=== PATIENT | male | born 1950 | race Caucasian/White ===

== ENCOUNTER 2018-08-27 21:34 | Emergency (ER) | payer OTHER ==
[~2018-08-27] VITALS: Ht 170.2 cm; Wt 70.3 kg
[~2018-08-27 21:34] MED LIST: AMIODARONE HCL100 MG PO; CLONAZEPAM0.5 MG PO; COREG CR10 MG PO; COUMADIN2.5 MG PO; Coreg 3.125MG TABLET PO; DIGOXIN125 MCG PO; ISORDIL10 MG PO; LAMICTAL XR300 MG PO; LASIX20 MG PO; LEVAQUIN500 MG PO; LIPITOR40 MG PO; LISINOPRIL2.5 MG PO; NEURONTIN300 MG PO; PRAVASTATIN SOD40 MG PO; Tussi-Organidin Dm-S PO; XARELTO10 MG PO; XARELTO20 MG PO; ZITHROMAX500 MG PO
== END 2018-08-28 10:13 | disposition home or self-care (01) ==
LOC: ER 21:34
DX: R07.89 Other chest pain (principal)

== ENCOUNTER 2019-08-19 12:18 | Emergency (ER) | payer OTHER ==
[~2019-08-19] VITALS: Ht 175.3 cm; Wt 72.6 kg
[2019-08-19] MEDS ORDERED: TUSNEL LIQUID178 ML PO (14:05)
== END 2019-08-19 14:14 | disposition home or self-care (01) ==
LOC: ER 12:18
DX: J00 Acute nasopharyngitis [common cold] (principal)

== ENCOUNTER 2019-10-17 12:13 | Emergency (ER) | payer OTHER ==
[~2019-10-17] VITALS: Ht 170.2 cm; Wt 74.8 kg
[~2019-10-17 12:13] MED LIST changes: +TUSNEL LIQUID178 ML PO
== END 2019-10-17 18:32 | disposition home or self-care (01) ==
LOC: ER 12:13
DX: J90 Pleural effusion, not elsewhere classified (principal); R06.02 Shortness of breath

== ENCOUNTER 2019-10-23 12:04 | Inpatient (IN) | payer OTHER ==
[~2019-10-23] VITALS: Ht 167.6 cm; Wt 88.5 kg
[2019-11-03] MEDS ORDERED: LAMICTAL XR300 MG PO ×2 (09:06→09:08)
[2019-11-03] MEDS ORDERED: LASIX20 MG PO (09:06)
[2019-11-03] MEDS ORDERED: AMIODARONE HCL100 MG PO (09:06)
[2019-11-03] MEDS ORDERED: LIPITOR40 MG PO (09:06)
[2019-11-03] MEDS ORDERED: XARELTO10 MG PO (09:06)
== END 2019-11-04 20:03 | disposition home or self-care (01) | DRG 291 ==
LOC: ER 12:04 → ICU-2 19:06 → ICU 19:06 → MEDJ 10-28 15:14
PROVIDERS: ADMIT Internal Medicine
PROC: B246ZZZ Ultrasonography of Right and Left Heart (ICD-10-PCS; principal; 2019-10-23)
PROC: BW28ZZZ Computerized Tomography (CT Scan) of Head (ICD-10-PCS; 2019-10-23)
PROC: B345ZZZ Ultrasonography of Bilateral Common Carotid Arteries (ICD-10-PCS; 2019-10-23)
PROC: 4A033R1 Measurement of Arterial Saturation, Peripheral, Percutaneous Approach (ICD-10-PCS; 2019-10-23)
PROC: 0T9B70Z Drainage of Bladder with Drainage Device, Via Natural or Artificial Opening (ICD-10-PCS; 2019-10-23)
PROC: 4A12X4Z Monitoring of Cardiac Electrical Activity, External Approach (ICD-10-PCS; 2019-10-24)
PROC: BV44ZZZ Ultrasonography of Scrotum (ICD-10-PCS; 2019-11-02)
DX: I11.0 Hypertensive heart disease with heart failure (principal); I63.332 Cerebral infarction due to thrombosis of left posterior cerebral artery; I31.3 Pericardial effusion (noninflammatory); R65.10 Systemic inflammatory response syndrome (SIRS) of non-infectious origin without acute organ dysfunction; I24.8 Other forms of acute ischemic heart disease; I50.43 Acute on chronic combined systolic (congestive) and diastolic (congestive) heart failure; I08.1 Rheumatic disorders of both mitral and tricuspid valves; I65.23 Occlusion and stenosis of bilateral carotid arteries; R31.0 Gross hematuria; R29.702 NIHSS score 2; S01.22XA Laceration with foreign body of nose, initial encounter; N43.41 Spermatocele of epididymis, single; N50.89 Other specified disorders of the male genital organs; I48.0 Paroxysmal atrial fibrillation; I69.320 Aphasia following cerebral infarction; Z79.01 Long term (current) use of anticoagulants; Z95.810 Presence of automatic (implantable) cardiac defibrillator